=== PATIENT | female | born 1980 | race Two or more races ===

== ENCOUNTER 2019-08-11 17:35 | Emergency (ER) | payer OTHER ==
[~2019-08-11] VITALS: Ht 160 cm; Wt 59.0 kg
[~2019-08-11 17:35] MED LIST: SYNTHROID100 MCG
[2019-08-11] MEDS ORDERED: VITAMIN D5000 UNIT (17:52)
[2019-08-11] MEDS ORDERED: CELEBREX100 MG PO (22:38)
[2019-08-11] MEDS ORDERED: SKELAXIN800 MG PO (22:38)
== END 2019-08-11 22:51 | disposition home or self-care (01) ==
LOC: ER 17:35
DX: M62.838 Other muscle spasm (principal); M25.572 Pain in left ankle and joints of left foot

== ENCOUNTER 2024-10-10 10:38 | Emergency (ER) | payer OTHER ==
[~2024-10-10] VITALS: Ht 160 cm; Wt 61.2 kg
[~2024-10-10 10:38] MED LIST changes: +CELEBREX100 MG PO; +SKELAXIN800 MG PO; +VITAMIN D5000 UNIT
[2024-10-10 14:10] LABS: HEMATOCRIT 38.3 % (36.0-45.00); HEMOGLOBIN 12.7 g/dL (12.0-15.00); MEAN CELL VOLUME 89.2 fL (80.00-100.00); MEAN CORPUSCULAR HEMOGLOBIN 29.7 pg (27.00-32.0); MEAN CORPUSCULAR HGB CONC 33.3 g/dl (32.0-36.0); PLATELET COUNT 260 K/uL (150-450); RED BLOOD COUNT 4.29 M/uL (4.00-6.00); RED CELL DISTRIBUTION WIDTH 13.8 % (11.5-14.5)
[2024-10-10 14:46] LABS: INR 1.06; PROTHROMBIN TIME 11.5 SECONDS (9.0-11.5)
[2024-10-10 14:49] LABS: FIBRINOGEN 299 mg/dL (187.0-446.0); PARTIAL THROMBOPLASTIN TIME 27.6 SECONDS (22.0-34.0)
[2024-10-10 14:53] LABS: D DIMER < 0.19 MG/L
[2024-10-10] MEDS ORDERED: NEURONTIN300 MG PO (15:44)
== END 2024-10-10 16:37 | disposition home or self-care (01) ==
LOC: ER 10:40
PROVIDERS: General Practice
DX: R20.2 Paresthesia of skin (principal); M79.605 Pain in left leg; E03.8 Other specified hypothyroidism

== ENCOUNTER → 2025-05-23 | Emergency (ER) | payer OTHER ==
[~2025-05-23] VITALS: Ht 160 cm; Wt 59.0 kg
[~2025-05-23] MED LIST changes: +DICLOFENAC POTA50 MG PO; +KETOROLAC TROMETHAMINE 30 MG VIAL IM STA; +NEURONTIN300 MG PO; +TIROSINT75 MCG PO
[2025-05-23 16:43] VITALS: BP 119/69; O2SAT 99
[2025-05-23 17:53] LABS: BASO % 0.3 % (0.1-1.2); EOS # 0.07 (0.04-0.54); EOS % 1.1 % (0.7-7.0); LYMPH # 2.35 (1.18-3.74); LYMPH % 38.3 % (19.3-53.1); MEAN PLATELET VOLUME 10.20 fl (9.4-12.4); MONO # 0.44 (0.24-0.82); MONO % 7.2 % (4.7-12.5); NEUT # 3.25 (1.56-6.13); NEUT % 52.9 % (34.0-71.1); RED CELL DISTRIBUTION WIDTH 13.2 % (11.6-14.4)
[2025-05-23 18:28] LABS: ALT/SGPT 17 U/L (12-78); AST/SGOT 14 U/L (15-37); BILIRUBIN TOTAL 0.31 mg/dL (0.3-1.2); BUN CREA RATIO 22 (7.0-25.0); CREATININE SERUM 0.76 mg/dL (0.55-1.02); GFR 81.93; GLOBULINA 3.5 G/DL (2.4-3.5); GLUCOSE FASTING 112 mg/dL (65-100); OSMOLALITY SERUM 293 MOSM/KG (275-295)
[2025-05-23 19:49] LABS: ERYTHROCYTE SEDIMENTATION RATE 11 mm/hr (0-20)
== END | disposition home or self-care (01) ==
LOC: ER 16:04
PROVIDERS: General Practice
DX: M77.32 Calcaneal spur, left foot (principal); E03.8 Other specified hypothyroidism